=== PATIENT | female | born 1970 | race Caucasian/White ===

== ENCOUNTER 2023-11-30 06:07 | Emergency (ER) | payer OTHER ==
[~2023-11-30] VITALS: Ht 167.6 cm; Wt 64.0 kg
[2023-11-30 07:08] LABS: BASO % 0.1 % (0.0-1.0); EOS # 0.1 10^3/uL (0.0-0.5); EOS % 0.4 % (0.0-3.0); HEMATOCRIT 43.8 % (36.0-47.0); HEMOGLOBIN 14.5 g/dl (12.0-15.5); LYMPH # 1.2 10^3/uL (1.5-5.0); LYMPH % 7.1 % (24.0-44.0); MEAN CORPUSCULAR HEMOGLOBIN 30.1 pg (27.0-33.0); MEAN CORPUSCULAR HGB CONC 33.1 g/dl (32.0-36.5); MEAN CORPUSCULAR VOLUME 90.9 fl (80.0-96.0); MONO # 0.9 10^3/uL (0.0-0.8); MONO % 5.3 % (2.0-8.0); NEUTROPHILS # 14.8 10^3/uL (1.5-8.5); NEUTROPHILS % 86.7 % (36.0-66.0); PLATELET COUNT, AUTOMATED 295 10^3/uL (150-450); RED BLOOD COUNT 4.82 10^6/uL (4.00-5.40)
[2023-11-30 07:25] LABS: LIPASE 46 U/L (12-53)
[2023-11-30 07:27] LABS: ALBUMIN 3.9 G/DL (3.2-5.2); ALKALINE PHOSPHATASE 102 U/L (46-116); ALT/SGPT 27 U/L (7.0-40); AST/SGOT 25 U/L (<34); BILIRUBIN,DIRECT 0.2 MG/DL (<0.4); BILIRUBIN,TOTAL 0.7 MG/DL (0.3-1.2); BLOOD UREA NITROGEN 18 MG/DL (9-23); CALCIUM LEVEL 9.2 MG/DL (8.5-10.1); CARBON DIOXIDE LEVEL 25 MMOL/L (20-31); CHLORIDE LEVEL 109 MMOL/L (98-107); CK-MB VALUE MASS 1.5 NG/ML (<3.6); CREATININE FOR GFR 0.68 MG/DL (0.55-1.30); GLOMERULAR FILTRATION RATE > 60.0 (>51); GLUCOSE, FASTING 147 MG/DL (60-100); POTASSIUM SERUM 3.7 MMOL/L (3.5-5.1); SODIUM LEVEL 139 MMOL/L (136-145); TOTAL PROTEIN 7.1 G/DL (5.7-8.2)
[2023-11-30 07:30] LABS: CPK CREATINE PHOSPHOKINASE 194 U/L (34-145); MB/CK RELATIVE INDEX 0.77 (< OR =4)
[2023-11-30] MEDS: NS 1,000 ML IV ONE (07:58)
[2023-11-30] MEDS: ACETAMINOPHEN TAB 650MG DOSE (2X325MG) PO ONE (07:59)
[2023-11-30] MEDS: ONDANSETRON 4MG 2ML VIAL IV ONE (07:59)
[2023-11-30] MEDS ORDERED: SERT-141 PO (08:13)
[2023-11-30] MEDS ORDERED: COQ1200C PO (08:13)
[2023-11-30] MEDS ORDERED: ATOR40TA75 PO (08:13)
[2023-11-30 08:39] LABS: CK-MB VALUE MASS 1.1 NG/ML (<3.6); MB/CK RELATIVE INDEX 0.56 (< OR =4)
[2023-11-30] MEDS ORDERED: ISOVUE-370 76% 100ML VIAL As Ordered ONE (09:20)
[2023-11-30 09:40] VITALS: TEMP 99.7
[2023-11-30] MEDS: CIPROFLOXACIN 400 MG in IV 1 EA IV ONE (12:09)
[2023-11-30] MEDS ORDERED: CIPR-249 PO (12:35)
[2023-11-30 13:00] VITALS: BP 106/62; O2SAT 92
== END 2023-11-30 13:13 | disposition home or self-care (01) ==
LOC: M ED 06:07
DX: N39.0 Urinary tract infection, site not specified (principal); E78.5 Hyperlipidemia, unspecified; F17.210 Nicotine dependence, cigarettes, uncomplicated; I45.10 Unspecified right bundle-branch block; Z79.899 Other long term (current) drug therapy
CPT/HCPCS: 74177; 80048; 80076; 81001; 82550; 82553; 83605; 83690; 84484; 85025; 87040; 87486; 87581; 87633; 87798; 93005; 93041; 96365; 96375; 99285; J0744; J2405; Q9967